=== PATIENT | female | born 1985 | race Caucasian/White ===

== ENCOUNTER 2021-01-02 22:23 | Emergency (ER) | payer MEDICAID, OTHER ==
[~2021-01-02] VITALS: Ht 157.5 cm; Wt 79.4 kg
--- NOTE | 2021-01-02 22:37 | NUR ---
PT IS IN ROOM #2A. DR MCKEON EVALUATED THE PT.
--- NOTE | 2021-01-02 23:10 | NUR ---
Xray at bedside.
--- NOTE | 2021-01-02 23:34 | NUR ---
Ultrasound at bedside.
[2021-01-02 23:37] LABS: HEMATOCRIT 41.7 % (31.2-41.9); MEAN CORPUSCULAR HEMOGLOBIN 27.8 uug (24.7-32.8); MEAN CORPUSCULAR VOLUME 83.6 fL (75.5-95.3); PLATELET COUNT (AUTO) 360 K/uL (179-408)
[2021-01-02 23:42] LABS: CREATININE 0.9 mg/dL (0.6-1.3); POTASSIUM 3.7 mmol/L (3.5-5.1)
[2021-01-02] MEDS ORDERED: HYDROMORPHONE 2 MG/1 ML DISP.SYRIN ONE (23:55)
--- NOTE | 2021-01-03 00:29 | NUR ---
Paracentesis procedure performed by Dr. Manjarrez, patient tolerated procedure well, drained 3300ml, samples sent to lab.
[2021-01-03] MEDS ORDERED: HYDROMORPHONE 1 MG/1 ML DISP.SYRIN IM ONE (00:30)
[2021-01-03] MEDS ORDERED: PHYTONADIONE 10 MG/1 ML AMPUL SQ ONE (00:45)
[2021-01-03] MEDS ORDERED: ONDANSETRON ODT 4 MG TAB.RAPDIS ONE (00:57)
[2021-01-03] MEDS ORDERED: PHYTONADIONE 10 MG/1 ML AMPUL ONE (01:44)
[2021-01-03] MEDS ORDERED: ONDANSETRON ODT 4 MG TAB.RAPDIS SL ONE (01:45)
--- NOTE | 2021-01-03 02:08 | NUR ---
Patient discharged to home in stable condition. Written and verbal after care instructions given. Patient verbalizes understanding of instructions. Stressed follow up or return to ER for worsening s/s. Patient out of ER with steady gait, no acute signs of distress, VSS, all belongings taken, provided with copies of lab results, xray, ultrasound, and ekg results, instructed not to drive, to be driven home by sister via private vehicle.
[2021-01-03 02:09] VITALS: BP 111/72
== END 2021-01-03 02:10 | disposition home or self-care (01) ==
LOC: ER 22:25
DX: R18.8 Other ascites (principal); K74.60 Unspecified cirrhosis of liver; E83.42 Hypomagnesemia; I42.9 Cardiomyopathy, unspecified; Z90.49 Acquired absence of other specified parts of digestive tract; Z95.810 Presence of automatic (implantable) cardiac defibrillator; I50.9 Heart failure, unspecified; E11.9 Type 2 diabetes mellitus without complications; I45.10 Unspecified right bundle-branch block
CPT/HCPCS: 36415 ×2; 49083; 71045; 76700; 80048; 82140; 82247; 82945; 83615; 83735; 83986; 84155; 85025; 85730; 87070; 87205; 93005; 96372 ×2; 99285; J1170; J3430; A4663; Q0162